=== PATIENT | male | born 1965 | race Caucasian/White ===

== ENCOUNTER → 2020-05-17 09:48 | Outpatient (CLI) ==
[2020-05-17 12:20] LABS: Absolute Lymphocyte Count 1.88 X10^3/uL (0.83-4.51); Absolute Neutrophil Count 4.9 X10^3/uL (2.0-7.7); Basophil# 0.03 X10^3/uL; Basophil% 0.4 % (0-1); Eosinophil# 0.19 X10^3/uL; Eosinophils% 2.5 % (0-5); Hematocrit 46.9 % (40-54); Hemoglobin 15.5 g/dL (13.0-16.5); Lymphocyte # 1.88 X10^3/ul (4.0); Lymphocyte % 24.9 % (19-41); Mean Corpuscular Hgb 29.8 pg (27.0-32.0); Mean Corpuscular Volume 90.2 fL (80-94); Mean Platelet Vol. 9.6 fl (6.2-12.0); Monocyte# 0.53 X10^3/uL; NRBC Flagged by Analyzer 0 % (0-5); Neutrophil # 4.89 X10^3/uL (2.7-7.7); Neutrophil % 64.9 % (47-70); Platelet Count 279 K/mm3 (150-450); RBC Distribution Width SD 39.6 fl (35.1-43.9); White Blood Count 7.5 K/mm3 (4.4-11.0)
[2020-05-17 12:56] LABS: ALB/GLOB Ratio 1.1 RATIO (0.9-2.4); AST(SGOT) 30 U/L (15-37); Alanine Aminotransfer ALT/SGPT 48 U/L (16-61); Albumin, Serum 3.9 g/dL (3.2-5.0); Alkaline Phosphatase 41 U/L (45-117); Anion Gap 7 (5-15); BUN 19 mg/dL (7-18); BUN/Creat Ratio 18.3 RATIO (10-20); Calcium,Total 8.8 mg/dL (8.5-10.1); Chloride 102 mmol/L (98-107); Cholesterol 96 mg/dL (200); Creatinine, Serum 1.04 mg/dL (0.70-1.30); EST Glomerular Filtration Rate 79 mL/min (>60); Est Glom Filt Rate - Afr Amer 95 mL/min (>60); Globulin 3.6 g/dL (2.2-4.2); Glucose 113 mg/dL (74-106); High Density Lipoprotein 44 mg/dL; PSA,Total - Annual Screen 2.76 ng/mL (0.00-4.00); Potassium 4.6 mmol/L (3.5-5.1); Protein, Total 7.5 g/dL (6.4-8.2); Sodium Level 136 mmol/L (136-145); Thyroid Stim Hormone (TSH) 1.42 uIU/mL (0.358-3.74); Triglycerides 61 mg/dL; Very Low Density Lipoprotein 12 mg/dL (5-40)
[2020-05-17 14:04] LABS: Hemoglobin A1c 6.1 % (3.8-5.6)
== END ==
PROVIDERS: Internal Medicine
DX: E11.9 Type 2 diabetes mellitus without complications (principal); E78.5 Hyperlipidemia, unspecified; I10 Essential (primary) hypertension; Z12.5 Encounter for screening for malignant neoplasm of prostate
CPT/HCPCS: 36415; 80053; 80061; 83036; 84153; 84443; 85025; G0103

== ENCOUNTER 2020-06-29 05:23 | Day surgery (SDC) | payer OTHER, SELFPAY ==
[2020-05-17 08:19] VITALS: BMI 33.8
[2020-06-14 08:07] VITALS: BMI 34.1
[2020-06-29] VITALS (8 sets, daily range): BP systolic 105–129; BP diastolic 74–101; PULSE 91–102; RESP 16–18; TEMP 35.6–36.7; O2SAT 94–100
--- NOTE | 2020-06-29 05:56 | HP.PCM_ITS ---
Problem List (1) Screening for intestinal cancer Status: Acute History of Present Illness Date of Admission: 06/29/20 The patient is a 55 year old M who presents for screening colonoscopy today. He has never had a previous colonoscopy. There is no family history of colon cancer. He denies bright red blood per rectum or melena. No abdominal pain. No change in bowel habits. He is a type II diabetic but he otherwise enjoys good health. There is no documented cardiac or pulmonary disease. Past Medical History Past Medical History (Chronic Problems): Chronic Problems (Last Reviewed 06/14/20 @ 08:12 by Dimple Wilkes) Obesity (BMI 30.0-34.9) (Chronic) Hyperlipidemia (Chronic) Hypertension (Chronic) Diabetes mellitus (Chronic) Medical History: Medical History (Last Reviewed 06/14/20 @ 08:12 by Dimple Wilkes) Allergy to pollen Z91.09 Carpal tunnel syndrome G56.00 Cubital tunnel syndrome G56.20 Diabetes E11.9 Neuropathy G62.9 Poison komal L23.7 Allergies No Known Allergies Allergy (Verified 06/25/20 08:44) Home Medications: Ambulatory Orders Medication Instructions Recorded atorvastatin 20 mg tablet 20 mg PO QPM 05/06/20 glimepiride 2 mg tablet 2 mg PO QAM 05/06/20 lisinopril 2.5 mg tablet 2.5 mg PO .pm tab 05/06/20 metformin 1,000 mg tablet 1,000 mg PO BID 05/06/20 Surgical History: Surgical History (Last Reviewed 06/14/20 @ 08:12 by Dimple Wilkes) History of carpal and cubital tunnel surgery Dr. Grey 2018 Smoking Status: Never smoker Tobacco Use: Non-smoker Review of Systems Constitutional: Denies: Fever Cardiovascular: Denies: Chest Pain Respiratory: Denies: Shortness of Breath Gastrointestinal: Denies: Abdominal Pain, Melena Endocrine: Denies: Change in Body Habitus VTE Information - Inpt Only VTE Present on Admission: No - Physical Exam Vitals/I&O's: Vital Signs Temp Pulse Resp BP Pulse Ox 98.1 F 92 16 126/80 H 98 06/29/20 05:44 06/29/20 05:44 06/29/20 05:44 06/29/20 05:44 06/29/20 05:44 Oxygen Delivery Method Room Air Weight: 234 lb 5.622 oz Body Mass Index (BMI) 34.1 General: Alert, Oriented x3, Cooperative, No apparent distress HEENT: Atraumatic Oral: Moist Mucosa Neck: Supple Lungs: Clear to auscultation, Normal air movement Cardiovascular: Regular rate, Regular Rhythm Abdomen: Bowel Sounds Present, Soft, Non Tender Extremities: No Calf Tenderness Psych/Mental Status: Normal Affect Microbiology Past 72 Hours 06/28/20 Unknown Interface Orders SARS-CoV-2 Antigen (Rapid) - Final Assessment/Plan All Active Problems (Last Reviewed 06/14/20 @ 08:12 by Dimple Wilkes) Screening for intestinal cancer (Acute) 55-year-old gentleman who has not had a previous colonoscopy presents for screening examination. He is aware of the technique, benefit, risk, altern atives. He has had an opportunity to ask and have questions answered. We will proceed as noted. He presents today via open access. Manav Singer M.D., F.A.C.S. Procedure Criteria Procedure Type: Elective COVID Risk Discussion: The surgeon/proceduralist and patient have discussed in detail the risk of exposure to and/or potential harm posed by the COVID-19 virus with having a surgery/procedure at this time versus the risk of delaying the surgery/procedure. It is not possible to know either the risk of delaying the surgery or procedure or chance of getting an infection with perfect accuracy, but a joint decision was made between the patient and the surgeon/proceduralist to proceed at this time with the scheduled surgery/procedure as indicated on the consent form.
[2020-06-29] MEDS: Lactated Ringers 1,000 ML 100 ML IV (06:13)
--- NOTE | 2020-06-29 06:30 | COLBX_PTH ---
PATIENT: JEANNE PARIKH LOC: EN U#:[id number] AGE/SX: 55/M ROOM: RE06/29/[address]: Dr. Manav Singer MD : 1965 BED: DIS: 06/29/2020 SPEC #: [id number] RECD: 06/29/20 11:21 STATUS: RICK CHRISTINE #: [id number] SUNDAR: 06/29/20 06:[address]: Manav Singer DEPT: SURGICAL PATHOLOGY RECD BY: Ariadne Patel ENTERED: 06/29/20 12:15 SP TYPE: COLON BX OTHR DR: Dr. Katiana Boykin MD Tissues: Rectum, NOS Procedures: Surgery Specimen Level IV HEADER OPERATION: Colonoscopy - open access (MOD) PRE-OP DIAGNOSIS: Screening for intestinal cancer TISSUE SUBMITTED: Rectal polyp biopsy MICROSCOPIC DIAGNOSIS Rectal polyp, biopsy: Hyperplastic polyp. AM:socorro 06/30/20 MICROSCOPIC DESCRIPTION Slides are reviewed. GROSS DESCRIPTION Received in fixative is one container labeled with the patient's name and designated rectal polyp biopsy. The specimen consists of multiple irregular fragments of light mary soft tissue that in aggregate measure 0.5 x 0.3 x 0.1 cm. The specimen is totally submitted in one cassette. / SJ:socorro 06/29/20 TC:5 CPT: 94001
--- NOTE | 2020-06-29 06:46 | OP.CCLET_ITS ---
06/29/2020 Katiana Boykin [facility] [address] [place] [address] Re : Colonoscopy procedure for Jamshid Holderwski Dear Dr. Boykin This procedure was performed on Monday, June 29, 2020. My impressions and recommendations are as follows: Impressions : - Hemorrhoids found on perianal exam. - One 4 mm polyp in the rectum, removed with a cold biopsy forceps. Resected and retrieved. - The examination was otherwise normal. Recommendations : - Discharge patient to home. - Resume previous diet. - Continue present medications. - Repeat colonoscopy in 5 years for surveillance based on pathology results. - Telephone my office for pathology results in 1 week. My findings are described in the full procedure note, which is enclosed. If I can be of further assistance, please feel free to contact me at Doctor phone number(s): Work: . Sincerely, Manav Singer MD 06/29/2020 6:45:42 AM This report has been signed electronically.
--- NOTE | 2020-06-29 06:46 | OP.COLON_ITS ---
Patient Name: Jamshid Vasquez Procedure Date: 06/29/2020 6:12 AM Date of : 1965 Age: 55 Procedure: Colonoscopy Indications: Screening for colorectal malignant neoplasm Providers: Manav Singer MD Referring MD: Katiana Boykin Medicines: Midazolam 4 mg IV, Meperidine 100 mg IV Patient Profile: Last Colonoscopy: none. The patient's first colonoscopy is today. Complications: No immediate complications. Procedure: Pre-Anesthesia Assessment: - Prior to the procedure, a History and Physical was performed, and patient medications and allergies were reviewed. The patient's tolerance of previous anesthesia was also reviewed. The risks and benefits of the procedure and the sedation options and risks were discussed with the patient. All questions were answered, and informed consent was obtained. Prior Anticoagulants: The patient has taken no previous anticoagulant or antiplatelet agents. ASA Grade Assessment: II - A patient with mild systemic disease. After reviewing the risks and benefits, the patient was deemed in satisfactory condition to undergo the procedure. After I obtained informed consent, the scope was passed under direct vision. Throughout the procedure, the patient's blood pressure, pulse, and oxygen saturations were monitored continuously. The colonoscope was introduced through the anus and advanced to the cecum, identified by appendiceal orifice and ileocecal valve. The colonoscopy was performed without difficulty. The patient tolerated the procedure well. The quality of the bowel preparation was good. The ileocecal valve and the appendiceal orifice were photographed. Moderate Sedation: Moderate (conscious) sedation was personally administered by the endoscopist. The following parameters were monitored: oxygen saturation, heart rate, blood pressure, and response to care. Total physician intraservice time was 15 minutes. Scope In: 6:30:05 AM Scope Withdrawal Time 0 hours 8 minutes 20 seconds Scope Out: 6:41:48 AM Total Procedure Duration Time 0 hours 11 minutes 43 seconds Findings: Hemorrhoids were found on perianal exam. The digital rectal exam was normal. Pertinent negatives include normal prostate (size, shape, and consistency). A 4 mm polyp was found in the rectum. The polyp was sessile. The polyp was removed with a cold biopsy forceps. Resection and retrieval were complete. The exam was otherwise without abnormality. Impression: - Hemorrhoids found on perianal exam. - One 4 mm polyp in the rectum, removed with a cold biopsy forceps. Resected and retrieved. - The examination was otherwise normal. Recommendation: - Discharge patient to home. - Resume previous diet. - Continue present medications. - Repeat colonoscopy in 5 years for surveillance based on pathology results. - Telephone my office for pathology results in 1 week. Procedure Code(s): --- Professional --- 37063, Colonoscopy, flexible; with biopsy, single or multiple 75397, 59, Moderate sedation services provided by the same physician or other qualified health caregiver services home performing the diagnostic or therapeutic service that the sedation supports, requiring the presence of an independent trained observer to assist in the monitoring of the patient's level of consciousness and physiological status; initial 15 minutes of intraservice time, patient age 5 years or older Diagnosis Code(s): --- Professional --- Z12.11, Encounter for screening for malignant neoplasm of colon K64.9, Unspecified hemorrhoids K62.1, Rectal polyp CPT copyright 2017 [employer]. All rights reserved. The codes documented in this report are preliminary and upon him coder review may be revised to meet current compliance requirements. Manav Singer MD 06/29/2020 6:45:42 AM This report has been signed electronically. Number of Addenda: 0 Note Initiated On: 06/29/2020 6:12 AM
== END 2020-06-29 08:27 | disposition home or self-care (01) ==
LOC: EN 05:24 → AC 05:25
PROVIDERS: PCP Internal Medicine; Referring Provider Internal Medicine; Visit Provider Surgery
PROC: 0DJD8ZZ Inspection of Lower Intestinal Tract, Via Natural or Artificial Opening Endoscopic (ICD-10-PCS; CPT 45378; principal; 2020-06-29 06:25)
DX: Z12.11 Encounter for screening for malignant neoplasm of colon (principal); K62.1 Rectal polyp; K64.9 Unspecified hemorrhoids; Z20.828 Contact with and (suspected) exposure to other viral communicable diseases; I10 Essential (primary) hypertension; E66.9 Obesity, unspecified; Z68.34 Body mass index [BMI] 34.0-34.9, adult; E11.40 Type 2 diabetes mellitus with diabetic neuropathy, unspecified; E78.5 Hyperlipidemia, unspecified; Z79.84 Long term (current) use of oral hypoglycemic drugs; Z79.899 Other long term (current) drug therapy
CPT/HCPCS: 45380; 87426; 88305; 99152; 99153; C9803; J7120

== ENCOUNTER → 2021-06-03 08:17 | Outpatient (CLI) | payer OTHER, SELFPAY ==
[2021-06-03 12:23] LABS: Absolute Lymphocyte Count 2.14 X10^3/uL (0.83-4.51); Absolute Neutrophil Count 4.2 X10^3/uL (2.0-7.7); Basophil# 0.03 X10^3/uL; Basophil% 0.4 % (0-1); Eosinophil# 0.14 X10^3/uL; Hematocrit 46.3 % (40-54); Hemoglobin 15.1 g/dL (13.0-16.5); Lymphocyte # 2.14 X10^3/ul (0.83-4.51); Lymphocyte % 30.1 % (19-41); Mean Corp Hgb Conc 32.6 g/dL (32-36); Mean Corpuscular Hgb 29.3 pg (27.0-32.0); Mean Corpuscular Volume 89.9 fL (80-94); Mean Platelet Vol. 9.5 fl (6.2-12.0); Monocyte# 0.58 X10^3/uL; Monocyte% 8.1 % (0-10); NRBC Flagged by Analyzer 0 % (0-5); Platelet Count 279 K/mm3 (150-450); RBC Distribution Width CV 12.3 % (11.6-14.6); RBC Distribution Width SD 40.6 fl (35.1-43.9); Red Blood Count 5.15 M/mm3 (4.6-6.2); White Blood Count 7.1 K/mm3 (4.4-11.0)
[2021-06-03 12:48] LABS: Hemoglobin A1c 6.3 % (3.8-5.6)
[2021-06-03 13:05] LABS: AST(SGOT) 28 U/L (15-37); Alanine Aminotransfer ALT/SGPT 42 U/L (16-61); Albumin, Serum 3.8 g/dL (3.2-5.0); Alkaline Phosphatase 46 U/L (45-117); Anion Gap 4 (5-15); BUN 25 mg/dL (7-18); Calcium,Total 8.5 mg/dL (8.5-10.1); Chloride 103 mmol/L (98-107); Cholesterol 106 mg/dL (200); Creatinine, Serum 1.04 mg/dL (0.70-1.30); EST Glomerular Filtration Rate 78 mL/min (>60); Est Glom Filt Rate - Afr Amer 95 mL/min (>60); Globulin 3.7 g/dL (2.2-4.2); Glucose 112 mg/dL (74-106); High Density Lipoprotein 39 mg/dL; PSA,Total - Annual Screen 2.92 ng/mL (0.00-4.00); Potassium 4.3 mmol/L (3.5-5.1); Protein, Total 7.5 g/dL (6.4-8.2); Sodium Level 137 mmol/L (136-145); Triglycerides 81 mg/dL; Very Low Density Lipoprotein 16 mg/dL (5-40)
== END ==
PROVIDERS: PCP Internal Medicine; Referring Provider Internal Medicine; Visit Provider Internal Medicine
DX: E11.9 Type 2 diabetes mellitus without complications (principal); E66.9 Obesity, unspecified; E78.5 Hyperlipidemia, unspecified; I10 Essential (primary) hypertension; Z12.5 Encounter for screening for malignant neoplasm of prostate
CPT/HCPCS: 36415; 80053; 80061; 83036; 84153; 85025; G0103

== ENCOUNTER → 2021-07-25 08:26 | Outpatient (CLI) | payer OTHER, SELFPAY ==
--- NOTE | 2021-07-25 08:28 | RAD_ITS ---
INDICATION: R13.10 - Dysphagia, unspecified EXAMINATION/TECHNIQUE: Thick and thin oral contrast in addition to effervescent granules were administered orally to the patient. The patient was also given a barium pill. Total Fluoroscopic Time: 3:36 minutes/seconds number of Fluoroscopic Images: 33 images. COMPARISON: None. FINDINGS: Unremarkable transit of the contrast bolus through the oral cavity and oropharynx. Unremarkable transit of the contrast bolus into and through the esophagus. The esophagus demonstrates unremarkable contours with no evidence of esophageal diverticula, no evidence of strictures or masses. Unremarkable transit of the contrast bolus through the gastroesophageal junction. Unremarkable swallowing mechanism of the solid barium pill however delayed transit of the pill was visualized across the gastroesophageal junction. Limited evaluation of the stomach due to suboptimal coating however unremarkable gastric mucosal folds visualized. Unremarkable contours of the stomach was no evidence of ulcerations or masses. No evidence of hiatus hernia is visualized. No evidence of gastroesophageal reflux was seen. RAD/Upper GI w/BA Swallow IMPRESSION: Unremarkable upper GI study. Electronically Signed: Morales Orlando MD at 11:49 EST Tel , Service support ,
== END ==
PROVIDERS: PCP Internal Medicine; Referring Provider Surgery; Visit Provider Surgery
DX: R13.10 Dysphagia, unspecified (principal)
CPT/HCPCS: 74246

== ENCOUNTER 2021-08-26 06:34 | Day surgery (SDC) | payer OTHER, SELFPAY ==
[2021-08-26] VITALS (8 sets, daily range): BP systolic 95–124; BP diastolic 57–76; PULSE 75–84; RESP 15–18; TEMP 36.3–36.7; O2SAT 93–100; BMI 35.2
--- NOTE | 2021-08-26 | EGD_PTH ---
PATIENT: JEANNE PARIKH LOC: EN U#:[id number] AGE/SX: 56/M ROOM: RE08/26/[address]: Dr. Manav Singer MD : 1965 BED: DIS: 08/26/2021 SPEC #: [id number] RECD: 08/26/21 11:36 STATUS: RICK KING #: [id number] SUNDAR: 08/26/21 00:[address]: Manav Singer DEPT: SURGICAL PATHOLOGY RECD BY: Andrea Shaikh ENTERED: 08/26/21 11:37 SP TYPE: EGD BIOPSY OT DR: Dr. Katiana Boykin MD Tissues: A - Duodenum, NOS B - Gastric mucous membrane C - Stomach, NOS D - Esophageal mucous membrane E - Esophageal mucous membrane Procedures: Special Stain Group II Surgery Specimen Level IV Alcian Blue/PAS (control) HEADER OPERATION: EGD ([facility] [place]) PRE-OP DIAGNOSIS: Dysphagia TISSUE SUBMITTED: A ? Duodenum biopsy, B ? Antrum biopsy for H. pylori and path, C ? Greater curvature polyp biopsy, D ? Distal esophagus biopsy, E ? Mid esophagus biopsy MICROSCOPIC DIAGNOSIS A. Duodenum, biopsy: No pathologic change. B. Gastric antrum, biopsy: Chronic gastritis. Negative for H. pylori organisms. Focal intestinal metaplasia. No evidence of dysplasia. See comment. C. Greater curvature of stomach polyp, biopsy: Consistent with fundic gland polyp. D. Distal esophagus, biopsy: Gastroesophageal junctional mucosa with mild chronic inflammation. No evidence of goblet cell metaplasia. See comment. E. Mid esophagus, biopsy: No pathologic change. AM:socorro 08/29/2021 COMMENT B. The results of immunohistochemistry ([id number]) support the diagnosis. B & D. Alcian blue/PAS stain with matched control is used in the evaluation of the specimen. MICROSCOPIC DESCRIPTION Slides are reviewed. GROSS DESCRIPTION A - Received in fixative is one container labeled with the patient's name and designated duodenum biopsy. The specimen consists of one irregular fragment of light mary soft tissue that measures 0.4 x 0.3 x 0.1 cm. The specimen is totally submitted in one cassette. B - Received in fixative is one container labeled with the patient's name and designated antrum biopsy. The specimen consists of multiple irregular fragments of light mary soft tissue that in aggregate measure 0.6 x 0.3 x 0.1 cm. The specimen is totally submitted in one cassette. C - Received in fixative is one container labeled with the patient's name and designated greater curvature polyp biopsy. The specimen consists of one irregular fragment of light mary soft tissue that measures 0.4 x 0.3 x 0.1 cm. The specimen is totally submitted in one cassette. D - Received in fixative is one container labeled with the patient's name and designated distal esophagus biopsy. The specimen consists of multiple irregular fragments of light mary soft tissue that in aggregate measure 1 x 0.3 x 0.1 cm. The specimen is totally submitted in one cassette. E - Received in fixative is one container labeled with the patient's name and designated mid esophagus biopsy. The specimen consists of two irregular fragments of light mary soft tissue that in aggregate measure 0.4 x 0.2 x 0.1 cm. The specimen is totally submitted in one cassette. / SJ:rg 08/26/2021 TC:3 CPT: 64708 x5, 34839 x2
--- NOTE | 2021-08-26 06:56 | HP.PCM_ITS ---
History and Physical Date of Admission: 08/26/21 Intake Visit Reasons: Dysphagia Chief Complaint: dysphagia [employer] Required: No Is patient in pain?: No Allergies No Known Allergies Allergy (Verified 07/18/21 15:05) Medications glimepiride 2 mg tablet 2 mg PO QAM #90 tab 02/24/21 [Rx Confirmed 07/18/21] atorvastatin 20 mg tablet 20 mg PO QPM #90 tab 04/05/21 [Rx Confirmed 07/18/21] lisinopril 2.5 mg tablet 2.5 mg PO .pm #90 tab 04/05/21 [Rx Confirmed 07/18/21] metformin 1,000 mg tablet 1,000 mg PO BID #180 tab 04/05/21 [Rx Confirmed 07/18/21] PFSH Medical History Allergy to pollen Carpal tunnel syndrome Cubital tunnel syndrome Diabetes Neuropathy Normal colonoscopy Poison komal Surgical History (Updated 07/18/21 @ 15:04 by Gwen Spears) History of carpal and cubital tunnel surgery History of colonoscopy (~06/2020) Family History Brother Hypertension Social History Smoking Status: Never smoker alcohol intake: never substance use type: does not use HPI HPI HPI: JEANNE PARIKH, is a 56 M who presents to the office today for surgical consultation regarding esophageal dysphagia. I have previously assisted the patient with a colonoscopy June 29, 2020. That was a screening examination. Hemorrhoids were identified and small polyp of the rectum. Rectal polyp was only hyperplastic. Patient is noting sometimes food is hard to pass the level of the mid chest. No vomiting. No long-term heartburn symptoms. His chronic medical problems include diabetes hypertension obesity and hyperlipidemia. He is being referred for consideration of esophagogastroduodenoscopy. The patient is referred by Dr. Katiana Boykin and a written copy of my surgical consult and recommendations will be returned to him The patient states that he will spontaneously intermittently is with liquids or solids have a chest discomfort mid chest that will last for brief periods of time. There is no nausea or vomiting. He has not had any episodes that would require food bolus obstruction. He denies feeling of heartburn. He does not take any antacids. He does have sleep apnea was wondering there was a correlation. He points to the midsternal area. He felt that possibly this was cardiac in etiology but on review with Dr. Katiana Boykin this seems less likely. The patient is a diabetic. He has never had a stress test. 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 The discomfort occurs when he is intermittently swallowing either liquids or solids. It is intermittent and unpredictable and not repeatable ROS General General: No weight change, appetite, fatigue, colon cancer, breast cancer or weakness HEENT HEENT: Yes difficulty swallowing; No eye injury, eye surgery, swollen glands or hoarseness Endo Endocrine: Yes diabetes mellitus; No thyroid disease, thyroid cancer, Hair loss, heat intolerance or cold intolerance Musc Musculoskeletal: No back problems, arthritis, rheumatoid arthritis, gout or joint pain Cardio Cardiovascular: No murmur, pacemaker, heart disease, atrial fibrillation, high blood pressure, heart attack, heart stent, palpitations, shortness of breat with exertion or chest pain Psych Psychiatric: No depression, anxiety or hearing voices Resp Respiratory: No shortness of breath, Yes sleep apnea, No cough, No COPD, No asthma, No emphysema and No wheezing Gastro Gastrointestinal: No abdominal pain, No nausea or vomiting, No diarrhea, No constipation, No blood in stool, No acid reflux, No hemorrhoids, No ulcers, No gallbladder problem and No black,tarry stools Justin Hematologic: No blood thinners, No blood disorders, No bleeding, No anemia and No blood clots Neuro Neurologic: No weakness Exam Const General: cooperative, comfortable and no acute distress Nutritional Appearance: overweight Orientation: alert and awake [facility] Head: normal to inspection Eyes General: appearance normal, both eyes and all related structures Chest Chest palpation & inspection: normal inspection of the chest Resp Effort & Inspection: normal respiratory effort Auscultation: clear to auscultation bilaterally Cardio Rate: regular rate Rhythm: regular rhythm GI Palpation: soft and no hepatosplenomegaly Musc Cervical Spine: normal cervical lordosis Skin General: no rashes or lesions noted Neuro General: patient alert and patient awake Extrem General: normal to inspection and no calf tenderness Psych Appearance: grossly normal Assessment and Plan Assessment and Plan (1) Dysphagia: Status: Acute Orders: Orders: Upper GI w/BA Swallow Today R13.10 Plan - Dr. Manav Singer MD: Esophageal dysphagia of undetermined etiology. This could be silent esophageal reflux disease. Symptoms do not particularly sound like an esophageal stric ture. This also could be eosinophilic esophagitis or a motility problem like nutcracker esophagus. I recommend to him that we perform a esophagogastroduodenoscopy. Careful inspection for evidence of reflux or eosinophilic esophagitis or H. pylori will be pursued I additionally recommend to him a barium contrast upper GI study. Pending the results of that evaluation if everything is unremarkable then possibly would consider esophageal manometry. The patient's had an opportunity to ask any questions answered. I appreciate the ongoing opportunity of assisting with surgical care. We will schedule procedure at his discretion. Copy: Dr. Katiana Singer M.D., F.A.C.S I have re-examined the patient. There are no clinical changes since date of exam.
[2021-08-26 07:10] LABS: Bedside Glucose 121 mg/dL (70-110)
--- NOTE | 2021-08-26 07:30 | IMM_PTH ---
PATIENT: JEANNE PARIKH LOC: EN U#:[id number] AGE/SX: 56/M ROOM: RE08/26/[address]: Dr. Manav Singer MD : 1965 BED: DIS: 08/26/2021 SPEC #: [id number] RECD: 08/26/21 12:53 STATUS: RICK REQ #: [id number] SUNDAR: 08/26/21 07:[address]: Manav Singer DEPT: IMMUNOHISTOCHEMISTRY RECD BY: Greta Trivedi ENTERED: 08/26/21 12:54 SP TYPE: IMMUNO OTHR DR: Dr. Katiana Boykin MD Tissues: B - Stomach, NOS Procedures: H Pylori (initial) KI-67 (add) P53 (add) PHYSICIAN & INSTITUTION [place] [id number] SPECIMEN INFORMATION: Tissue Source: B ? Antrum biopsy Clinical Info: Dysphagia Specimen Number: [id number] CPT code: 58426, 38892 x2 METHODOLOGY: Deparaffinized sections of prefer/formalin-fixed tissue or PAP/DQ stained slides are incubated with monoclonal/polyclonal antibodies/oligonucleotide probes. Localization is made via biotin free immunoperoxidase method. Appropriate controls are performed and reacted as expected. Results on target cell population are indicated in the following table: RESULTS: ANTIBODY / CLONE RESULT Block B H Pylori (polyclonal) negative P53 (DO-7) negative Ki-67 (30-9) negative These tests were developed and their performance characteristics determined by [facility]. They may not have been cleared or approved by the [place]. Food and Drug Administration. The FDA has determined that such clearance or approval is not necessary. The above immunohistochemical/dualISH markers are ordered and reviewed by the pathologist. INTERPRETATION: B. Antrum biopsy: Negative for Helicobacter pylori organisms. Intestinal metaplasia. No evidence of dysplasia. AM:socorro 08/30/2021
--- NOTE | 2021-08-26 07:36 | OP.EGD_ITS ---
Patient Name: Jamshid Vasquez Procedure Date: 08/26/2021 7:01 AM Date of : 1965 Age: 56 Procedure: Upper GI endoscopy Indications: Dysphagia Providers: Manav Singer MD Medicines: See the Anesthesia note for documentation of the administered medications Complications: No immediate complications. Procedure: Pre-Anesthesia Assessment: - Prior to the procedure, a History and Physical was performed, and patient medications and allergies were reviewed. The patient's tolerance of previous anesthesia was also reviewed. The risks and benefits of the procedure and the sedation options and risks were discussed with the patient. All questions were answered, and informed consent was obtained. Prior Anticoagulants: The patient has taken no previous anticoagulant or antiplatelet agents. ASA Grade Assessment: II - A patient with mild systemic disease. After reviewing the risks and benefits, the patient was deemed in satisfactory condition to undergo the procedure. After obtaining informed consent, the endoscope was passed under direct vision. Throughout the procedure, the patient's blood pressure, pulse, and oxygen saturations were monitored continuously. The Endoscope was introduced through the mouth, and advanced to the second part of duodenum. The upper GI endoscopy was accomplished without difficulty. The patient tolerated the procedure well. Scope In: 7:21:24 AM Scope Out: 7:29:29 AM Total Procedure Duration Time 0 hours 8 minutes 5 seconds Findings: LA Grade A (one or more mucosal breaks less than 5 mm, not extending between tops of 2 mucosal folds) esophagitis with no bleeding was found 41 cm from the incisors. Biopsies were taken with a cold forceps for histology. A small hiatal hernia was present. Diffuse mild inflammation characterized by erythema was found in the gastric antrum. Biopsies were taken with a cold forceps for histology. A few sessile polyps with no bleeding and no stigmata of recent bleeding were found on the greater curvature of the stomach. The polyp was removed with a cold biopsy forceps. Resection and retrieval were complete. Diffuse mildly erythematous mucosa without active bleeding and with no stigmata of bleeding was found in the duodenal bulb. Biopsies were taken with a cold forceps for histology. The middle third of the esophagus was normal. Biopsies were taken with a cold forceps for histology. Impression: - LA Grade A reflux esophagitis. Biopsied. - Small hiatal hernia. - Chronic gastritis. Biopsied. - A few gastric polyps. Resected and retrieved. - Erythematous duodenopathy. Biopsied. - Normal middle third of esophagus. Biopsied. Recommendation: - Discharge patient to home. - Resume previous diet. - Continue present medications. - Use Prilosec (omeprazole) 40 mg PO daily. Procedure Code(s): --- Professional --- 70108, Esophagogastroduodenoscopy, flexible, transoral; with biopsy, single or multiple Diagnosis Code(s): --- Professional --- K21.0, Gastro-esophageal reflux disease with esophagitis K44.9, Diaphragmatic hernia without obstruction or gangrene K29.50, Unspecified chronic gastritis without bleeding K31.7, Polyp of stomach and duodenum K31.89, Other diseases of stomach and duodenum R13.10, Dysphagia, unspecified CPT copyright 2017 [employer]. All rights reserved. The codes documented in this report are preliminary and upon strap stitcher review may be revised to meet current compliance requirements. Manav Singer MD 08/26/2021 7:35:52 AM This report has been signed electronically. Number of Addenda: 0 Note Initiated On: 08/26/2021 7:01 AM
--- NOTE | 2021-08-26 07:37 | OP.CCLET_ITS ---
08/26/2021 Katiana Boykin [facility] [address] [place] [address] Re : Upper GI endoscopy procedure for Jamshid Vaqsuez Dear Dr. Boykin This procedure was performed on Thursday, August 26, 2021. My impressions and recommendations are as follows: Impressions : - LA Grade A reflux esophagitis. Biopsied. - Small hiatal hernia. - Chronic gastritis. Biopsied. - A few gastric polyps. Resected and retrieved. - Erythematous duodenopathy. Biopsied. - Normal middle third of esophagus. Biopsied. Recommendations : - Discharge patient to home. - Resume previous diet. - Continue present medications. - Use Prilosec (omeprazole) 40 mg PO daily. My findings are described in the full procedure note, which is enclosed. If I can be of further assistance, please feel free to contact me at Doctor phone number(s): Work: . Sincerely, Manav Singer MD 08/26/2021 7:35:52 AM This report has been signed electronically.
[2021-08-26] MEDS: Lactated Ringers 1,000 ML 15 ML IV (07:40)
== END 2021-08-26 23:59 | disposition home or self-care (01) ==
LOC: EN 06:39 → AC 06:40
PROVIDERS: PCP Internal Medicine; Referring Provider Internal Medicine; Visit Provider Surgery
PROC: 0DJ08ZZ Inspection of Upper Intestinal Tract, Via Natural or Artificial Opening Endoscopic (ICD-10-PCS; CPT 43235; principal; 2021-08-26 07:25)
DX: K29.50 Unspecified chronic gastritis without bleeding (principal); E11.40 Type 2 diabetes mellitus with diabetic neuropathy, unspecified; K31.7 Polyp of stomach and duodenum; K44.9 Diaphragmatic hernia without obstruction or gangrene; K21.00 Gastro-esophageal reflux disease with esophagitis, without bleeding; E78.5 Hyperlipidemia, unspecified; I10 Essential (primary) hypertension; E66.9 Obesity, unspecified; Z68.35 Body mass index [BMI] 35.0-35.9, adult; G56.03 Carpal tunnel syndrome, bilateral upper limbs; E78.00 Pure hypercholesterolemia, unspecified; G47.30 Sleep apnea, unspecified; Z79.84 Long term (current) use of oral hypoglycemic drugs; Z79.899 Other long term (current) drug therapy
CPT/HCPCS: 43239; 82962; 88305; 88313; 88341; 88342; J7120; J2405

== ENCOUNTER → 2022-06-05 | Outpatient (CLI) | payer OTHER, SELFPAY ==
[2022-06-05 12:11] LABS: Absolute Lymphocyte Count 1.71 X10^3/uL (0.83-4.51); Absolute Neutrophil Count 5.5 X10^3/uL (2.0-7.7); Basophil# 0.03 X10^3/uL; Basophil% 0.4 % (0-1); Eosinophil# 0.19 X10^3/uL; Eosinophils% 2.3 % (0-5); Hematocrit 46.6 % (40-54); Hemoglobin 14.9 g/dL (13.0-16.5); Lymphocyte # 1.71 X10^3/ul (0.83-4.51); Lymphocyte % 21.1 % (19-41); Mean Corpuscular Hgb 28.9 pg (27.0-32.0); Mean Corpuscular Volume 90.3 fL (80-94); Mean Platelet Vol. 10.1 fl (6.2-12.0); Monocyte# 0.58 X10^3/uL; Monocyte% 7.2 % (0-10); NRBC Flagged by Analyzer 0 % (0-5); Neutrophil # 5.53 X10^3/uL (2.7-7.7); Neutrophil % 68.4 % (47-70); Platelet Count 255 K/mm3 (150-450); RBC Distribution Width CV 12.2 % (11.6-14.6); RBC Distribution Width SD 40.3 fl (35.1-43.9); Red Blood Count 5.16 M/mm3 (4.6-6.2); White Blood Count 8.1 K/mm3 (4.4-11.0)
[2022-06-05 12:22] LABS: Vitamin D,25 Hydroxy 25.3 ng/mL
[2022-06-05 12:30] LABS: Hemoglobin A1c 6.6 % (3.8-5.6)
[2022-06-05 12:35] LABS: ALB/GLOB Ratio 1.1 RATIO (0.9-2.4); AST(SGOT) 17 U/L (15-37); Alanine Aminotransfer ALT/SGPT 40 U/L (16-61); Albumin, Serum 3.7 g/dL (3.2-5.0); Alkaline Phosphatase 44 U/L (45-117); Anion Gap 4 (5-15); BUN 16 mg/dL (7-18); BUN/Creat Ratio 14.8 RATIO (10-20); Calcium,Total 9.3 mg/dL (8.5-10.1); Chloride 103 mmol/L (98-107); Cholesterol 107 mg/dL (200); Creatinine, Serum 1.08 mg/dL (0.70-1.30); EST Glomerular Filtration Rate 75 mL/min (>60); Est Glom Filt Rate - Afr Amer 90 mL/min (>60); Globulin 3.5 g/dL (2.2-4.2); Glucose 144 mg/dL (74-106); High Density Lipoprotein 37 mg/dL; PSA,Total - Annual Screen 4.57 ng/mL (0.00-4.00); Protein, Total 7.2 g/dL (6.4-8.2); Sodium Level 136 mmol/L (136-145); Thyroid Stim Hormone (TSH) 3.03 uIU/mL (0.358-3.74); Triglycerides 86 mg/dL; Very Low Density Lipoprotein 17 mg/dL (5-40)
== END | disposition home or self-care (01) ==
LOC: BIMLAB 08:16
PROVIDERS: PCP Internal Medicine; Referring Provider Internal Medicine; Visit Provider Internal Medicine
DX: E11.9 Type 2 diabetes mellitus without complications (principal); I10 Essential (primary) hypertension; E78.5 Hyperlipidemia, unspecified; E66.9 Obesity, unspecified; E55.9 Vitamin D deficiency, unspecified
CPT/HCPCS: 36415; 80053; 80061; 82306; 83036; 84153; 84443; 85025; G0103

== ENCOUNTER → 2022-08-24 | Outpatient (CLI) | payer OTHER, SELFPAY ==
--- NOTE | 2022-08-24 12:58 | EKG12_ITS ---
Test Reason : SOB Blood Pressure : / mmHG Vent. Rate : 082 BPM Atrial Rate : 082 BPM P-R Int : 174 ms QRS Dur : 162 ms QT Int : 432 ms P-R-T Axes : 068 063 -71 degrees QTc Int : 504 ms Normal sinus rhythm Left bundle branch block Abnormal ECG Confirmed by TEVIN LUBIN, PANCHITO ([id number]), marketing editor SONIA GATICA ([id number]) on 08/25/2022 12:56:21 PM Referred By: ALFONSO Confirmed By:PANCHITO ABARCA MD
== END | disposition home or self-care (01) ==
LOC: PSN 12:57
PROVIDERS: PCP Internal Medicine; Visit Provider Internal Medicine
DX: R06.02 Shortness of breath (principal); E11.9 Type 2 diabetes mellitus without complications; I44.7 Left bundle-branch block, unspecified; R06.09 Other forms of dyspnea; I10 Essential (primary) hypertension; E78.5 Hyperlipidemia, unspecified
CPT/HCPCS: 93005

== ENCOUNTER → 2022-09-18 | Outpatient (CLI) | payer OTHER, SELFPAY ==
--- NOTE | 2022-09-18 06:57 | ECHOD_ITS ---
Reason For Study: SOB Procedure This was a 2D Doppler, Color Flow transthoracic echocardiogram. Exam performed in department. Left Ventricle Severely dilated left ventricle. Mild concentric left ventricular hypertrophy. The estimated ejection fraction is 15 %. There is severe global hypokinesis of the left ventricle. Right Ventricle Normal RV size. Normal systolic function. Atria Normal left atrium. Normal right atrium. Mitral Valve Normal mitral valve. Mild (1+) eccentric mitral valve insufficiency. Tricuspid Valve Normal tricuspid valve. Aortic Valve Trisinus/trileaflet aortic valve. Pulmonic Valve Normal pulmonic valve. Great Vessels Normal aortic root. The pulmonary artery is normal size. Normal inferior vena cava. Pericardium/Pleural No pericardial effusion. MMode/2D Measurements & Calculations LVIDd: 6.8 cm IVSd: 1.2 cm Ao root diam: 3.2 cm LVIDs: 6.0 cm LVPWd: 1.4 cm RVDd: 3.3 cm FS: 11.3 % LAV(MOD-sp4): 26.1 ml LVAd ap4: 53.0 cm2 SV(MOD-sp4): 51.3 ml LVLd ap4: 10.5 cm EDV(MOD-sp4): 228.1 ml EDV(sp4-el): 227.9 ml LVAs ap4: 45.4 cm2 LVLs ap4: 9.7 cm ESV(MOD-sp4): 176.7 ml ESV(sp4-el): 179.9 ml EF(MOD-sp4): 22.5 % EF(sp4-el): 21.1 % SV(sp4-el): 48.1 ml LA A4 area: 13.2 cm2 LA dimension(2D): 4.3 cm RA A4 area: 12.9 cm2 Doppler Measurements & Calculations MV E max harry: 89.5 cm/sec MV V2 max: 90.4 cm/sec Ao V2 max: 101.5 cm/sec MV max P.3 mmHg Ao max P.1 mmHg MV V2 mean: 61.1 cm/sec Ao V2 mean: 70.2 cm/sec MV mean P.6 mmHg Ao mean P.3 mmHg MV V2 VTI: 18.7 cm Ao V2 VTI: 17.3 cm AV (velocity ratio): 0.68 LV V1 max: 67.7 cm/sec MR max harry: 406.3 cm/sec PA V2 max: 70.1 cm/sec LV V1 max P.8 mmHg MR max P.0 mmHg LV V1 mean P.99 mmHg LV V1 mean: 45.4 cm/sec LV V1 VTI: 11.7 cm ECHO/Echo Complete Interpretation Summary The estimated ejection fraction is 15 %. Severely dilated left ventricle. Mild concentric left ventricular hypertrophy. There is severe global hypokinesis of the left ventricle. Ordering Physician: Ari Stout Referring Physician: Ari Stout Performed By: Thalia Alvarez RCS
[2022-09-18 08:27] LABS: PSA,Total- Diagnostic 3.38 ng/mL (0.0-4.0)
--- NOTE | 2022-09-18 11:20 | RAD_ITS ---
STUDY: X-RAY CHEST REASON FOR EXAM: Male, 57 years old. Fever and cough TECHNIQUE: PA and lateral views of the chest. COMPARISON: None. FINDINGS: The lungs are clear and expanded. There is no demonstrated pleural abnormality. Normal size heart. Normal mediastinum and mariah. Normal visualized pulmonary arteries. Normal visualized aortic arch and descending thoracic aorta. Normal visualized thoracic spine. Normal visualized ribs, clavicles, and shoulders. There is no demonstrated abnormality of the visualized soft tissue structures of the upper abdomen. RAD/Chest PA and Lateral IMPRESSION: No acute pulmonary process Electronically Signed: Jaycob Jones MD at 15:00 EST ,
[2022-09-18 12:15] LABS: Absolute Lymphocyte Count 2.02 X10^3/uL (0.83-4.51); Absolute Neutrophil Count 6.8 X10^3/uL (2.0-7.7); Basophil# 0.04 X10^3/uL; Basophil% 0.4 % (0-1); Eosinophil# 0.12 X10^3/uL; Eosinophils% 1.2 % (0-5); Hematocrit 49.7 % (40-54); Hemoglobin 15.8 g/dL (13.0-16.5); Lymphocyte # 2.02 X10^3/ul (0.83-4.51); Mean Corp Hgb Conc 31.8 g/dL (32-36); Mean Corpuscular Hgb 28.7 pg (27.0-32.0); Mean Corpuscular Volume 90.4 fL (80-94); Mean Platelet Vol. 9.5 fl (6.2-12.0); Monocyte# 0.62 X10^3/uL; Monocyte% 6.4 % (0-10); NRBC Flagged by Analyzer 0 % (0-5); Neutrophil % 70.6 % (47-70); Platelet Count 301 K/mm3 (150-450); RBC Distribution Width CV 12.4 % (11.6-14.6); RBC Distribution Width SD 41.2 fl (35.1-43.9); White Blood Count 9.6 K/mm3 (4.4-11.0)
[2022-09-18 12:44] LABS: Anion Gap 5 (5-15); BUN 22 mg/dL (7-18); BUN/Creat Ratio 20.8 RATIO (10-20); Calcium,Total 9.6 mg/dL (8.5-10.1); Chloride 105 mmol/L (98-107); Creatinine, Serum 1.06 mg/dL (0.70-1.30); EST Glomerular Filtration Rate 76 mL/min (>60); Est Glom Filt Rate - Afr Amer 92 mL/min (>60); Glucose 144 mg/dL (74-106); Potassium 4.8 mmol/L (3.5-5.1); Sodium Level 140 mmol/L (136-145); Thyroid Stim Hormone (TSH) 2.41 uIU/mL (0.358-3.74)
--- NOTE | 2022-09-18 17:30 | STRESSREP ---
Stress Test Report Exercise myocardial perfusion stress test. 57-year-old man with a history of shortness of breath Stress protocol: Resting EKG demonstrates normal sinus rhythm with a rate of 87 bpm and a left bundle branch block pattern and resting blood pressure is 110/78 mmHg. The patient exercised according to the regular Ok protocol for a total duration of 5 minutes attaining a maximum heart rate of 157 bpm which was 96% of maximum predicted heart rate; the maximum workload was 7 metabolic equivalents. At rest there were no ST or T wave changes noted to suggest ischemia and at peak exercise upsloping ST changes only were noted which did not meet the criteria for ischemia. The patient maintained a left bundle branch block pattern throughout the exercise. No clinical angina was noted the test was terminated due to the target heart rate being achieved/fatigue. The peak blood pressure was 156/80 mmHg. Rate-pressure product was 18,360. Myocardial perfusion protocol. 14.5 mCi of technetium 99m sestamibi was injected at rest. The patient exercised according to regular Ok protocol for total duration of 5 minutes and at peak exercise 44.9 mCi of technetium 99m sestamibi was injected stress images were obtained stress and rest images were reconstructed in comparing the short axis vertical long and horizontal long axis. Gated images were also obtained. Perfusion SPECT analysis: Review of the stress images demonstrate a dilated cardiac silhouette size. There is reduced uptake noted involving the anterior septum, mid anterior, mid inferior and inferior basal wisdom. A similar pattern is present on the resting images. The above is suggestive of either cardiomyopathy or a previous extensive infarct involving the anterior septal wall, inferoseptal wall and inferobasal wisdom. No obvious ischemia is noted. Gated SPECT analysis: The gated ejection fraction is 21%. Conclusion: Abnormal exercise myocardial perfusion stress test at a moderate workload Reduced ejection fraction. Cardiomyopathy is likely
== END | disposition home or self-care (01) ==
PROVIDERS: PCP Internal Medicine; Referring Provider Internal Medicine Cardiovascular Disease; Visit Provider Internal Medicine Cardiovascular Disease
DX: R06.09 Other forms of dyspnea (principal); I42.9 Cardiomyopathy, unspecified; I10 Essential (primary) hypertension; I44.7 Left bundle-branch block, unspecified; R97.20 Elevated prostate specific antigen [PSA]
CPT/HCPCS: 36415; 71046; 78452; 80048; 84153; 84443; 85025; 93017; 93306; A9500; A4216

== ENCOUNTER 2022-09-22 06:41 | Day surgery (SDC) | payer OTHER, SELFPAY ==
[2022-09-21 08:03] VITALS: BMI 35.4
--- NOTE | 2022-09-22 08:30 | CL.D_ITS ---
Patient Name: JEANNE PARIKH Study Date: 09/22/2022 Performing: Ari Stout MD Ht: 69 inches 175.26 cm : 1965 Wt: 240.3 lbs 108.86 kg Age: 57 Gender: male BSA: 2.23 PROCEDURE(S) PERFORMED DC01-(19692)LHC/COR/LV CLINICAL PROFILE AND INDICATIONS Indications: Cardiomyopathy Heart Failure: None Stress/Imaging Date: 09/14/22Stress Test with SPECT MPI: Negative CAD Presentations: No Sxs, no angina. CONCLUSIONS Normal coronary arteries Cardiomyopathy: Dilated RECOMMENDATIONS Guideline directed medical therapy and cardiac MRI. DESCRIPTION OF PROCEDURE The patient arrived to the procedure lab. The risks and benefits of the procedure as well as a full description of our services here and current unavailability of surgical backup were fully explained to the patient and/or their significant other prior to the catheterization. The Timeout was completed, verifying the correct patient and procedure. The patient's procedural site was prepped and draped in the usual fashion. Local anesthetic was given subcutaneously to right radial region with Lidocaine 2%. Using a modified Seldinger technique, arterial access was obtained via the right radial artery, a 6Fr sheath was inserted. Right Coronary Artery selective angiography was then performed in multiple views using a 5 Fr. 4.0 [place] catheter. Left Coronary Artery selective angiography was performed in multiple views using a 5 Fr. 4.0 [place] catheter. Left Ventriculography was performed in TAVARES projection using a 5 Fr. Pigtail catheter. LV to AO pullback pressures were then recorded.The arterial sheath was pulled and a TR Band was applied for hemostasis, 8cc of air CORONARY ANGIOGRAPHY DOMINANCE: Left Dominant LEFT HEART ASSESSMENT Left Ventricular Ejection Fraction: by LV Gram 15 % Global Hypokinesis - Severe Depressed Left Ventricular systolic function LEFT MAIN: Angiographically normal LEFT ANTERIOR DESCENDING ARTERY: No significant disease noted CIRCUMFLEX ARTERY: No significant disease noted RIGHT CORONARY ARTERY: Mild luminal irregularities COMPLICATIONS No Complications PROCEDURE MEDICATIONS Fentanyl 50 mcg IV Versed 1 mg IV Versed 1 mg IV Oxygen: 2 L/min via nasal cannula Heparin given IA 09/22/2022 08:02:09 SUMMARY OF HEMODYNAMIC DATA Time AIR REST ECG 07:12:59 Art 111/59 (75) 07:58:12 AO 97/73 (81) SA 08:05:46 LV 90/15, 22 08:10:50 LV 93/16, 23 08:10:56 LV 90/14, 22 08:11:36 LVp 90/12, 22 08:11:40 AO 91/59 (73) 08:11:45 Signed By Ari Stout MD On 09/22/2022 08:29:41 Ari Stout MD
== END 2022-09-22 10:00 | disposition home or self-care (01) ==
LOC: CLSP 06:42
PROVIDERS: PCP Internal Medicine; Referring Provider Internal Medicine Cardiovascular Disease; Visit Provider Internal Medicine Cardiovascular Disease
DX: I42.0 Dilated cardiomyopathy (principal); E11.9 Type 2 diabetes mellitus without complications; I44.7 Left bundle-branch block, unspecified; E78.00 Pure hypercholesterolemia, unspecified; I10 Essential (primary) hypertension; Z79.899 Other long term (current) drug therapy; Z79.84 Long term (current) use of oral hypoglycemic drugs
CPT/HCPCS: 93458; 99152; 99153; J7040; C1769; C1887; C1894; Q9967

== ENCOUNTER → 2023-01-03 | Outpatient (CLI) | payer OTHER, SELFPAY ==
--- NOTE | 2023-01-03 13:39 | ECHOLC_ITS ---
Reason For Study: Dilated CMP Procedure This was a limited 2D transthoracic echocardiogram. The study was technically difficult. Contrast injection was performed. Exam performed in department. Left Ventricle Mildly dilated left ventricle. The estimated ejection fraction is 15 %. There is severe global hypokinesis of the left ventricle. Right Ventricle Normal RV size. Normal systolic function. Mitral Valve Mild-Moderate (1-2+) eccentric mitral valve insufficiency. Great Vessels Normal aortic root. The pulmonary artery is normal size. Normal inferior vena cava. Pericardium/Pleural No pericardial effusion. Medication 22 gauge I.V. with prn adaptor inserted into right arm. Diluted definity 2.5ml given slow IV push to enhance endocardial definition. MMode/2D Measurements & Calculations LVIDd: 6.8 cm IVSd: 0.91 cm LA dimension: 4.3 cm LVIDs: 5.9 cm LVPWd: 1.0 cm FS: 14.0 % LAV(MOD-bp): 67.1 ml SV(MOD-sp4): 44.3 ml LVAd ap4: 52.9 cm2 LAV(MOD-bp) Indexed: 30.3 ml/m2 LVLd ap4: 9.8 cm LAV(MOD-sp2): 78.3 ml EDV(MOD-sp4): 236.5 ml LAV(MOD-sp4): 58.4 ml EDV(sp4-el): 242.7 ml LVAs ap4: 46.8 cm2 LVLs ap4: 9.5 cm ESV(MOD-sp4): 192.2 ml ESV(sp4-el): 196.8 ml EF(MOD-sp4): 18.7 % EF(sp4-el): 18.9 % SV(sp4-el): 45.9 ml LA A4 area: 20.4 cm2 RA A4 area: 13.1 cm2 Doppler Measurements & Calculations MR max harry: 412.3 cm/sec MR max P.0 mmHg MR mean harry: 297.8 cm/sec MR mean P.4 mmHg MR VTI: 135.5 cm ECHO/Echo Limited w/Contrast Interpretation Summary The estimated ejection fraction is 15 %. There is severe global hypokinesis of the left ventricle. Contrast injection was performed. Compared to previous study, the left ventricu lar systolic function is the same.. Ordering Physician: Chrissy Cortes Referring Physician: Katiana Boykin M.D. Performed By: Terence Jerry RCS
== END | disposition home or self-care (01) ==
LOC: CVS 13:35
PROVIDERS: PCP Internal Medicine; Referring Provider Nurse Practitioner Gerontology; Visit Provider Nurse Practitioner Gerontology
DX: I42.9 Cardiomyopathy, unspecified (principal); I51.89 Other ill-defined heart diseases
CPT/HCPCS: 93308; Q9957; A4216; C8924

== ENCOUNTER → 2023-06-07 | Outpatient (CLI) | payer OTHER, SELFPAY ==
[2023-06-07 10:23] LABS: Absolute Lymphocyte Count 1.94 X10^3/uL (0.83-4.51); Absolute Neutrophil Count 5.7 X10^3/uL (2.0-7.7); Basophil# 0.04 X10^3/uL; Basophil% 0.5 % (0-1); Eosinophil# 0.18 X10^3/uL; Eosinophils% 2.1 % (0-5); Hematocrit 50.4 % (40-54); Hemoglobin 16.2 g/dL (13.0-16.5); Lymphocyte # 1.94 X10^3/ul (0.83-4.51); Mean Corp Hgb Conc 32.1 g/dL (32-36); Mean Corpuscular Hgb 29.4 pg (27.0-32.0); Mean Corpuscular Volume 91.5 fL (80-94); Mean Platelet Vol. 9.4 fl (6.2-12.0); Monocyte# 0.57 X10^3/uL; Monocyte% 6.8 % (0-10); NRBC Flagged by Analyzer 0 % (0-5); Neutrophil # 5.68 X10^3/uL (2.7-7.7); Neutrophil % 67.4 % (47-70); Platelet Count 240 K/mm3 (150-450); RBC Distribution Width CV 12.7 % (11.6-14.6); RBC Distribution Width SD 42.9 fl (35.1-43.9); Red Blood Count 5.51 M/mm3 (4.6-6.2); White Blood Count 8.4 K/mm3 (4.4-11.0)
[2023-06-07 10:59] LABS: Vitamin B12 321 pg/mL (211-911); Vitamin D,25 Hydroxy 36.7 ng/mL
[2023-06-07 11:01] LABS: AST(SGOT) 25 U/L (15-37); Alanine Aminotransfer ALT/SGPT 34 U/L (16-61); Alkaline Phosphatase 48 U/L (45-117); Anion Gap 4 (5-15); BUN 26 mg/dL (7-18); BUN/Creat Ratio 24.5 RATIO (10-20); Calcium,Total 9.3 mg/dL (8.5-10.1); Chloride 103 mmol/L (98-107); Cholesterol 112 mg/dL (200); Creatinine, Serum 1.06 mg/dL (0.70-1.30); EST Glomerular Filtration Rate 76 mL/min (>60); Est Glom Filt Rate - Afr Amer 92 mL/min (>60); Globulin 3.9 g/dL (2.2-4.2); Glucose 140 mg/dL (74-106); High Density Lipoprotein 41 mg/dL; Magnesium 2.6 mg/dL (1.6-2.6); Potassium 4.6 mmol/L (3.5-5.1); Protein, Total 7.9 g/dL (6.4-8.2); Sodium Level 136 mmol/L (136-145); Thyroid Stim Hormone (TSH) 2.15 uIU/mL (0.358-3.74); Triglycerides 87 mg/dL; Very Low Density Lipoprotein 17 mg/dL (5-40)
[2023-06-07 12:00] LABS: Hemoglobin A1c 6.1 % (3.8-5.6)
[2023-06-08 06:09] LABS: HEPATITIS B SURFACE AG Negative (Negative); Hep B Surface Antibodies Non Reactive (.); Hepatitis B Core Ab Total Negative (Negative); Hepatitis C Ab Non Reactive (Non Reactive)
== END | disposition home or self-care (01) ==
LOC: LAB 09:45
PROVIDERS: PCP Internal Medicine; Visit Provider Internal Medicine
DX: Z00.00 Encounter for general adult medical examination without abnormal findings (principal); I42.0 Dilated cardiomyopathy; E11.9 Type 2 diabetes mellitus without complications; E66.9 Obesity, unspecified; I10 Essential (primary) hypertension; E78.5 Hyperlipidemia, unspecified; Z13.220 Encounter for screening for lipoid disorders; E53.8 Deficiency of other specified B group vitamins; E55.9 Vitamin D deficiency, unspecified
CPT/HCPCS: 36415; 80053; 80061; 82306; 82607; 83036; 83735; 84443; 85025; 86704; 86705; 86706; 86707; 86803; 87340; 87350

== ENCOUNTER → 2023-12-27 | Outpatient (CLI) | payer OTHER, SELFPAY ==
--- NOTE | 2023-12-27 09:59 | ECHOLC_ITS ---
Reason For Study: CMP Procedure This was a limited 2D transthoracic echocardiogram. The study was technically difficult. Contrast injection was performed. Exam performed in department. Left Ventricle Normal LV size. The left ventricular ejection fraction is 30 %. Septal motion consistent with bundle branch block. Apical wall motion abnormality may reflect pacemaker activation. Right Ventricle Normal RV size. Atria Normal left atrium. Normal right atrium. Mitral Valve Normal mitral valve. Tricuspid Valve Normal tricuspid valve. Pericardium/Pleural No pericardial effusion. Medication 22 gauge I.V. with prn adaptor inserted into right arm. Diluted definity 2ml given slow IV push to enhance endocardial definition. MMode/2D Measurements & Calculations LVIDd: 5.3 cm IVSd: 1.1 cm LAV(MOD-bp): 38.0 ml LVIDs: 5.0 cm LVPWd: 1.2 cm LAV(MOD-bp) Indexed: 17.0 ml/m2 FS: 6.6 % LAV(MOD-sp2): 32.8 ml LAV(MOD-sp4): 38.2 ml LVAd ap4: 49.7 cm2 SV(MOD-sp4): 60.7 ml SV(sp4-el): 61.0 ml LVLd ap4: 9.9 cm EDV(MOD-sp4): 204.4 ml EDV(sp4-el): 210.7 ml LVAs ap4: 41.4 cm2 LVLs ap4: 9.7 cm ESV(MOD-sp4): 143.7 ml ESV(sp4-el): 149.7 ml EF(MOD-sp4): 29.7 % EF(sp4-el): 28.9 % LA A4 area: 15.8 cm2 RA A4 area: 15.0 cm2 ECHO/Echo Limited w/Contrast Interpretation Summary The left ventricular ejection fraction is 30 %. Normal LV size. Septal motion consistent with bundle branch block. Apical wall motion abnormality may reflect pacemaker activation. Contrast injection was performed. Ordering Physician: Chrissy Cortes Referring Physician: Chrissy Cortes Performed By: Thalia Alvarez RCS
== END | disposition home or self-care (01) ==
LOC: CVS 09:56
PROVIDERS: PCP Internal Medicine; Referring Provider Nurse Practitioner Gerontology; Visit Provider Nurse Practitioner Gerontology
DX: I42.0 Dilated cardiomyopathy (principal)
CPT/HCPCS: 93308; Q9957; A4216; C8924

== ENCOUNTER → 2024-06-04 | Outpatient (CLI) | payer OTHER, SELFPAY ==
[2024-06-04 09:27] LABS: Absolute Lymphocyte Count 1.82 X10^3/uL (0.83-4.51); Absolute Neutrophil Count 4.4 X10^3/uL (2.0-7.7); Basophil# 0.02 X10^3/uL; Basophil% 0.3 % (0-1); Eosinophil# 0.19 X10^3/uL; Eosinophils% 2.8 % (0-5); Hematocrit 49.7 % (40-54); Hemoglobin 16.3 g/dL (13.0-16.5); Lymphocyte # 1.82 X10^3/ul (0.83-4.51); Lymphocyte % 26.5 % (19-41); Mean Corp Hgb Conc 32.8 g/dL (32-36); Mean Corpuscular Hgb 29.6 pg (27.0-32.0); Mean Corpuscular Volume 90.2 fL (80-94); Mean Platelet Vol. 8.8 fl (6.2-12.0); Monocyte# 0.41 X10^3/uL; NRBC Flagged by Analyzer 0 % (0-5); Neutrophil # 4.38 X10^3/uL (2.7-7.7); Neutrophil % 63.7 % (47-70); Platelet Count 232 K/mm3 (150-450); RBC Distribution Width CV 12.6 % (11.6-14.6); RBC Distribution Width SD 41.1 fl (35.1-43.9); Red Blood Count 5.51 M/mm3 (4.6-6.2); White Blood Count 6.9 K/mm3 (4.4-11.0)
[2024-06-04 09:51] LABS: Vitamin D,25 Hydroxy 19.1 ng/mL
[2024-06-04 10:01] LABS: ALB/GLOB Ratio 1.2 RATIO (0.9-2.4); AST(SGOT) 24 U/L (15-37); Alanine Aminotransfer ALT/SGPT 38 U/L (16-61); Alkaline Phosphatase 45 U/L (45-117); Anion Gap 5 (5-15); BUN 19 mg/dL (7-18); BUN/Creat Ratio 18.6 RATIO (10-20); Calcium,Total 8.8 mg/dL (8.5-10.1); Chloride 106 mmol/L (98-107); Cholesterol 172 mg/dL (200); Creatinine, Serum 1.02 mg/dL (0.70-1.30); EST Glomerular Filtration Rate 79 mL/min (>60); Est Glom Filt Rate - Afr Amer 96 mL/min (>60); Globulin 3.2 g/dL (2.2-4.2); Glucose 136 mg/dL (74-106); High Density Lipoprotein 42 mg/dL; PSA,Total - Annual Screen 4.18 ng/mL (0.00-4.00); Potassium 4.8 mmol/L (3.5-5.1); Protein, Total 7.2 g/dL (6.4-8.2); Sodium Level 137 mmol/L (136-145); Triglycerides 122 mg/dL; Very Low Density Lipoprotein 24 mg/dL (5-40)
[2024-06-04 11:47] LABS: Hemoglobin A1c 6.7 % (3.8-5.6)
== END | disposition home or self-care (01) ==
LOC: LAB 09:00
PROVIDERS: PCP Internal Medicine; Referring Provider Internal Medicine; Visit Provider Internal Medicine
DX: Z00.00 Encounter for general adult medical examination without abnormal findings (principal); I42.0 Dilated cardiomyopathy; E11.9 Type 2 diabetes mellitus without complications; Z95.810 Presence of automatic (implantable) cardiac defibrillator; E78.5 Hyperlipidemia, unspecified; R97.20 Elevated prostate specific antigen [PSA]; Z12.5 Encounter for screening for malignant neoplasm of prostate; Z13.220 Encounter for screening for lipoid disorders; E55.9 Vitamin D deficiency, unspecified
CPT/HCPCS: 36415; 80053; 80061; 82306; 83036; 84153; 84443; 85025; G0103

== ENCOUNTER → 2024-06-12 | Outpatient (CLI) | payer OTHER, SELFPAY ==
--- NOTE | 2024-06-12 13:51 | ECHOLC_ITS ---
Reason For Study: DCMP Procedure This was a limited 2D transthoracic echocardiogram. The study was technically difficult. Contrast injection was performed. Exam performed in department. Left Ventricle Normal LV size. Mild concentric left ventricular hypertrophy. The left ventricular ejection fraction is 40 %. There is mild to moderate global hypokinesis of the left ventricle. Right Ventricle Normal RV size. ICD or pacer leads identified within the right ventricle. Normal systolic function. Atria Normal left atrium. Normal right atrium. Mitral Valve Normal mitral valve. Tricuspid Valve Normal tricuspid valve. Aortic Valve Trisinus/trileaflet aortic valve. Great Vessels Normal aortic root. Pericardium/Pleural No pericardial effusion. Medication 22 gauge I.V. with prn adaptor inserted into right arm. Diluted definity 2ml given slow IV push to enhance endocardial definition. MMode/2D Measurements & Calculations LVIDd: 5.1 cm IVSd: 1.3 cm LAV(MOD-bp): 40.5 ml LVIDs: 4.3 cm LVPWd: 1.7 cm LAV(MOD-bp) Indexed: 17.8 ml/m2 FS: 14.8 % LAV(MOD-sp2): 39.3 ml LAV(MOD-sp4): 38.3 ml SV(MOD-sp4): 57.2 ml SV(sp4-el): 59.3 ml LVAd ap4: 39.8 cm2 LVLd ap4: 9.4 cm SI(MOD-sp4): 25.2 ml/m2 EDV(MOD-sp4): 142.4 ml EDV(sp4-el): 143.4 ml LVAs ap4: 28.4 cm2 LVLs ap4: 8.2 cm ESV(MOD-sp4): 85.2 ml ESV(sp4-el): 84.1 ml EF(MOD-sp4): 40.2 % EF(sp4-el): 41.3 % LA A4 area: 14.6 cm2 LA dimension(2D): 3.5 cm RA A4 area: 12.5 cm2 ECHO/Echo Limited w/Contrast Interpretation Summary The left ventricular ejection fraction is 40 %. Normal LV size. Mild concentric left ventricular hypertrophy. Contrast injection was performed. Ordering Physician: Chrissy Cortes Referring Physician: Chrissy Cortes Performed By: Thalia Egan and Student
== END | disposition home or self-care (01) ==
LOC: CVS 13:50
PROVIDERS: PCP Internal Medicine; Referring Provider Nurse Practitioner Gerontology; Visit Provider Nurse Practitioner Gerontology
DX: I42.0 Dilated cardiomyopathy (principal)
CPT/HCPCS: 93308; Q9957; A4216; C8924

== ENCOUNTER → 2024-12-09 | Outpatient (CLI) | payer OTHER, SELFPAY ==
--- NOTE | 2024-12-09 13:09 | US_ITS ---
PROCEDURE: KIDNEY AND BLADDER 12/09/2024 REASON FOR EXAM: RIGHT FLANK PAIN TECHNIQUE: Bilateral renal ultrasound. COMPARISON: None FINDINGS: RIGHT Kidney Size: 11.4 cm x 6.3 cm x 6.9 cm Cortical Thickness (if discernible): 1.8 cm (>6mm is normal) 2 cysts are seen. The largest cyst is in the inferior pole measuring 1.5 cm x 1.3 cm x 1.2 cm. 2 nonobstructive intrarenal calculi are seen. LEFT Kidney Size: 13 cm x 5.1 cm x 6.4 cm Volume: 223.3 mL Cortical Thickness (if discernible): 1.5 cm (>6mm is normal) There is a 9 mm x 7 mm x 3 mm nonobstructive calculus. Urinary bladder is unremarkable. US/Kidney and Bladder IMPRESSION: Small bilateral renal cysts. Nonobstructive bilateral intrarenal calculi. Reading Location: [id number]
== END | disposition home or self-care (01) ==
LOC: US 13:09
PROVIDERS: PCP Internal Medicine; Referring Provider Internal Medicine; Visit Provider Internal Medicine
DX: R10.9 Unspecified abdominal pain (principal)
CPT/HCPCS: 76770

== ENCOUNTER → 2025-02-27 | Outpatient (CLI) | payer OTHER, SELFPAY ==
--- NOTE | 2025-02-27 13:55 | RAD_ITS ---
PROCEDURE: HIP, UNI W/ PELVIS 2-3 VIEWS 02/27/2025 REASON FOR EXAM: RIGHT HIP PAIN TECHNIQUE: HIP, UNI W/ PELVIS 2-3 VIEWS COMPARISON: None FINDINGS: Bones: No fracture. Joints: Coom-gm-[id number] degree of joint space narrowing in keeping with osteoarthritis. Soft tissues: Calcified left phleboliths. Other: Degenerative changes of the lower lumbar spine. RAD/HIP, UNI W/ Pelvis 2-3 Views IMPRESSION: Mild-gc-lwqjnycl degree of joint space narrowing involving the right hip joint. Reading Location: [id number]
== END | disposition home or self-care (01) ==
LOC: RAD 13:39
PROVIDERS: PCP Internal Medicine; Referring Provider Internal Medicine; Visit Provider Internal Medicine
DX: M25.551 Pain in right hip (principal)
CPT/HCPCS: 73502

== ENCOUNTER → 2025-03-16 | Outpatient (CLI) | payer OTHER, SELFPAY ==
[2025-03-16 10:14] LABS: Hematocrit 48.7 % (40-54); Hemoglobin 16.0 g/dL (13.0-16.5); Immature Granulocytes Count 0.040 X10^3/uL (0.0-0.0); Mean Corp Hgb Conc 32.9 g/dL (32-36); Mean Corpuscular Volume 91.2 fL (80-94); Mean Platelet Vol. 9.3 fl (6.2-12.0); NRBC Flagged by Analyzer 0 % (0-5); Platelet Count 263 K/mm3 (150-450); RBC Distribution Width CV 12.2 % (11.6-14.6); RBC Distribution Width SD 40.4 fl (35.1-43.9); Red Blood Count 5.34 M/mm3 (4.6-6.2); White Blood Count 7.0 K/mm3 (4.4-11.0)
[2025-03-16 11:25] LABS: AST(SGOT) 22 U/L (<=37); Alanine Aminotransfer ALT/SGPT 29 U/L (<=46); Albumin, Serum 4.3 g/dL (3.4-4.8); Alkaline Phosphatase 46 U/L (40-129); Anion Gap 11 (5-15); BUN 22 mg/dL (4-19); BUN/Creat Ratio 23.2 RATIO (10-20); Calcium,Total 9.6 mg/dL (7.6-11.0); Carbon Dioxide 25.8 mmol/L (21.0-32.0); Chloride 103 mmol/L (98-108); Cholesterol 149 mg/dL (<=200); Globulin 3.0 g/dL (2.2-4.2); Glucose 137 mg/dL (70-99); Low Density Lipoprotein Calc. 83 mg/dL; Magnesium 2.3 mg/dL (1.5-2.2); PSA,Total- Diagnostic 3.11 ng/mL (0.00-4.00); Potassium 5.0 mmol/L (3.3-5.1); Triglycerides 133 mg/dL; Very Low Density Lipoprotein 27 mg/dL (5-40); Vitamin D,25 Hydroxy 27.6 ng/mL (30-100); cholesterol:hdl ratio screen 3.77
== END | disposition home or self-care (01) ==
LOC: LAB 09:25
PROVIDERS: PCP Internal Medicine; Referring Provider Internal Medicine; Visit Provider Internal Medicine
DX: Z13.220 Encounter for screening for lipoid disorders (principal); I42.0 Dilated cardiomyopathy; E11.9 Type 2 diabetes mellitus without complications; E78.2 Mixed hyperlipidemia; I10 Essential (primary) hypertension; E66.9 Obesity, unspecified; E55.9 Vitamin D deficiency, unspecified; N40.0 Benign prostatic hyperplasia without lower urinary tract symptoms; R97.20 Elevated prostate specific antigen [PSA]
CPT/HCPCS: 36415; 80053; 80061; 82306; 83036; 83735; 84153; 84443; 85025

== ENCOUNTER 2025-04-13 08:05 | Outpatient (RCR) | payer OTHER, SELFPAY | END 2025-04-28 23:59 | LOC: NS 08:05 | PROVIDERS: PCP Internal Medicine; Referring Provider Nurse Practitioner Family; Visit Provider Nurse Practitioner Family | DX: Z71.3 Dietary counseling and surveillance (principal); E11.9 Type 2 diabetes mellitus without complications; I42.0 Dilated cardiomyopathy; E78.2 Mixed hyperlipidemia; E66.9 Obesity, unspecified | CPT/HCPCS: 97802 ==

== ENCOUNTER → 2025-04-24 | Outpatient (CLI) | payer OTHER, SELFPAY ==
[2025-04-24 10:53] LABS: Hematocrit 46.5 % (40-54); Hemoglobin 15.6 g/dL (13.0-16.5); Immature Granulocytes Count 0.060 X10^3/uL (0.0-0.0); Mean Corp Hgb Conc 33.5 g/dL (32-36); Mean Corpuscular Volume 90.1 fL (80-94); Mean Platelet Vol. 9.0 fl (6.2-12.0); NRBC Flagged by Analyzer 0 % (0-5); Platelet Count 213 K/mm3 (150-450); RBC Distribution Width CV 12.9 % (11.6-14.6); RBC Distribution Width SD 42.6 fl (35.1-43.9); Red Blood Count 5.16 M/mm3 (4.6-6.2); White Blood Count 7.8 K/mm3 (4.4-11.0)
[2025-04-24 11:31] LABS: Anion Gap 12 (5-15); BUN 19 mg/dL (4-19); BUN/Creat Ratio 19.4 RATIO (10-20); Calcium,Total 8.7 mg/dL (7.6-11.0); Carbon Dioxide 23.7 mmol/L (21.0-32.0); Chloride 100 mmol/L (98-108); Glucose 253 mg/dL (70-99); Magnesium 2.3 mg/dL (1.5-2.2); Potassium 4.4 mmol/L (3.3-5.1)
== END | disposition home or self-care (01) ==
LOC: LAB 10:23
PROVIDERS: PCP Internal Medicine; Referring Provider Nurse Practitioner Family; Visit Provider Nurse Practitioner Family
DX: I47.29 Other ventricular tachycardia (principal)
CPT/HCPCS: 36415; 80048; 83735; 84439; 84443; 85025